=== PATIENT | male | born 1995 | race Two or more races ===

== ENCOUNTER 2020-04-29 12:54 | Outpatient (CLI) | payer OTHER ==
[~2020-04-29 12:54] MED LIST: GILTUSS LIQUID237 ML PO
== END 2020-04-29 14:07 | disposition home or self-care (01) ==
LOC: RAD 12:54
PROVIDERS: ATTEND Podiatrist
DX: M21.622 Bunionette of left foot (principal)

== ENCOUNTER → 2020-06-24 | Outpatient (CLI) | payer OTHER | END | disposition home or self-care (01) | LOC: RAD 07:24 | PROVIDERS: ATTEND Orthopaedic Surgery | DX: M79.89 Other specified soft tissue disorders (principal); M25.542 Pain in joints of left hand ==

== ENCOUNTER 2020-08-08 07:56 | Outpatient (CLI) | payer OTHER | END 2020-08-08 08:30 | disposition home or self-care (01) | LOC: RAD 07:56 | PROVIDERS: ATTEND Orthopaedic Surgery | DX: S62.522A Displaced fracture of distal phalanx of left thumb, initial encounter for closed fracture (principal) ==

== ENCOUNTER 2025-06-23 11:35 | Emergency (ER) | payer OTHER ==
[~2025-06-23] VITALS: Ht 165.1 cm; Wt 73.5 kg
[2025-06-23 16:28] LABS: URINE APPEARANCE Clear; URINE BILIRRUBIN Negative (NEGATIVE); URINE BLOOD Negative; URINE COLOR Yellow; URINE GLUCOSE Negative (NEGATIVE); URINE KETONE Negative (NEGATIVE); URINE LEUKOCYTE Negative; URINE NITRATE Negative; URINE PROTEIN Negative (NEGATIVE); URINE UROBILINOGEN 0.2 E.U./dl
[2025-06-23 16:39] LABS: URINE BACTERIA 17.9 uL (0.0-1933)
[2025-06-23 16:52] LABS: URINE CAST 0.29 uL (0.0-1.40); URINE EPITHELIAL CELLS 1.0 uL (0.0-38.8); URINE RBC 1.7 uL (0.0-20.8); URINE WBC 1.0 uL (0.0-23.2)
[2025-06-23 17:01] LABS: BASO % 0.9 % (0.1-1.2); EOS # 0.37 (0.04-0.54); EOS % 4.9 % (0.7-7.0); LYMPH # 3.41 (1.18-3.74); LYMPH % 45.0 % (19.3-53.1); MEAN PLATELET VOLUME 10.80 fl (9.4-12.4); MONO # 0.39 (0.24-0.82); MONO % 5.1 % (4.7-12.5); NEUT # 3.33 (1.56-6.13); NEUT % 44.0 % (34.0-71.1); RED CELL DISTRIBUTION WIDTH 11.4 % (11.6-14.4)
[2025-06-23 17:39] LABS: ALT/SGPT 31.0 U/L (12-78); AST/SGOT 18.0 U/L (15-37); BILIRUBIN TOTAL 0.47 mg/dL (0.3-1.2); BUN CREA RATIO 13.0 (7.0-25.0); CREATININE SERUM 0.87 mg/dL (0.70-1.30); GFR 105.26; GLOBULINA 2.9 G/DL (2.4-3.5); GLUCOSE FASTING 96.0 mg/dL (65-100); OSMOLALITY SERUM 279.0 MOSM/KG (275-295)
[2025-06-23 17:57] LABS: COVID-19 AG NEGATIVE (NEGATIVE)
[2025-06-23] MEDS ORDERED: 8HR ARTHRITIS650 M1 PO (18:34)
[2025-06-23] MEDS ORDERED: DORYX200 MG PO (18:34)
[2025-06-23] MEDS ORDERED: PEPCID AC20 MG PO (18:34)
[2025-06-23] MEDS ORDERED: CEFTRIAXONE SODIUM 1,000 MG VIAL IV ONE (18:45)
== END 2025-06-23 21:22 | disposition home or self-care (01) ==
LOC: ER 11:36
PROVIDERS: General Practice
DX: R53.1 Weakness (principal); Z20.822 Contact with and (suspected) exposure to COVID-19